=== PATIENT | female | born 1985 | race Hispanic/Latino ===

== ENCOUNTER 2017-06-13 14:22 | Outpatient (CLI) | payer OTHER ==
--- NOTE | 2017-06-13 15:38 | RAD ---
FLUOROSCOPIC GUIDED HYSTEROSALPINGOGRAM: HISTORY: Infertility and anovulation. COMPARISON: None. TECHNIQUE: The patient was brought to the fluoroscopy suite. All questions were answered. The patient was put in the supine position. The external genitalia was prepped and draped in normal sterile fashion. A speculum was inserted. Then, the internal genitalia was cleaned. The cervical was dilated. The catheter was inserted into the cervix and then the balloon was inflate d. Retrograde instillation of contrast to through the uterine cavity was performed with spillage wit h extension to the fallopian tubes and free spillage within the peritoneal cavity. IMPRESSION: Open fallopian tubes. Fluoro time 0.5 minutes. POS: [facility]
== END 2017-06-13 14:23 | disposition home or self-care (01) ==
LOC: RAD 14:22
PROVIDERS: ATTEND Student in an Organized Health Care Education/Training Program
DX: N97.9 Female infertility, unspecified (principal)
CPT/HCPCS: 58340; 74740